=== PATIENT | female | born 1985 | race Hispanic/Latino ===

== ENCOUNTER 2018-09-14 14:52 | Outpatient (CLI) | payer BC ==
--- NOTE | 2018-09-14 16:24 | ULT ---
PELVIC ULTRASOUND: Date: 09/14/18 HISTORY: Cramping and pain between periods. Patient is recently . FINDINGS: Real-time imaging of the pelvis was obtained transabdominally. This shows a normal appearing uterus m easuring 3.5 x 5.0 x 9.0 cm. Endometrium is in the 5-6 mm range. Right and left ovaries are normal in size and appearance. DOPPLER EVALUATION WITH SPECTRAL ANALYSIS: Normal flow is shown to both adnexa. No free fluid. IMPRESSION: Unremarkable pelvic ultrasound. POS: EZEQUIEL
== END 2018-09-14 14:53 | disposition home or self-care (01) ==
LOC: SCSULT 14:52
PROVIDERS: ATTEND Family Medicine
DX: N92.6 Irregular menstruation, unspecified (principal)
CPT/HCPCS: 76856

== ENCOUNTER 2019-05-19 05:04 | Inpatient (IN) | payer BC ==
--- NOTE | 2019-05-18 13:03 | HP ---
HISTORY OF PRESENT ILLNESS: This is a 33-year-old female, with the EDC of 05/24/2019 at 39 weeks who presents for an elective repeat section. The patient has a history of prior section. She had a 7-pound 1-ounce baby girl. She did push for 3 hours unsuccessfully. She also had severe PIH at that time. This course has been relatively uncomplicated. PAST MEDICAL HISTORY: Unremarkable. ALLERGIES: NONE. PAST SURGICAL HISTORY: in December of 2016. FAMILY HISTORY: Positive for diabetes, hypertension, heart disease, and heart failure. SOCIAL HISTORY: She is nonsmoker. socially. REVIEW OF SYSTEMS: As above. PHYSICAL EXAMINATION: VITAL SIGNS: Stable, afebrile. Physical exam per Dr. Maurer. LABORATORY DATA: HIV negative. 1 hour 101. normal. Blood type O-positive, hepatitis B immune, HIV , thyroid normal, RPR negative, HPV rubella immune. ASSESSMENT: 1. Term . 2. Prior section. PLAN: 1. Routine LD orders. 2. Routine Anesthesia orders. 3. Planned repeat low-transverse section. Job ID: [id number]
[2019-05-19 05:49] VITALS: BMI 29.0
[2019-05-19 06:36] LABS: Hemoglobin 11.6 g/dL (12.0-16.0); Mean Corpuscular HGB CONC 33.7 g/dL (32.0-36.0); Mean Corpuscular Hemoglobin 29.9 pg (27.0-31.0); Mean Corpuscular Volume 88.8 fL (78.0-98.0); Mean Platelet Volume 10.8 fL (7.4-10.4); Platelet Count 101 thou/uL (130-400); RBC Distribution Width 11.9 % (11.5-14.5); Red Blood Cell (RBC) Count 3.87 mill/uL (4.20-5.40); White Blood Cell (WBC) Count 7.9 thou/uL (4.8-10.8)
[2019-05-19] MEDS ORDERED: Bicitra 30 ML UDCUP ONE (06:53)
[2019-05-19] MEDS ORDERED: MORPHINE 5 MG/10 ML PF VIAL ONE (06:58)
[2019-05-19] MEDS ORDERED: Fentanyl 100 MCG/2 ML VIAL ONE (06:58)
[2019-05-19] MEDS ORDERED: PHENYLEPHRINE-NS 100 MCG/ML 10 ML SYRINGE ONE (06:59)
[2019-05-19] MEDS ORDERED: Ondansetron PF 4 MG/2 ML Vial ONE (06:59)
[2019-05-19] MEDS ORDERED: Ketorolac Tromethamine 30 MG/ML VIAL ONE (06:59)
[2019-05-19] MEDS ORDERED: Oxytocin 10 UNITS/ML VIAL ONE (06:59)
[2019-05-19] MEDS: Lactated Ringer's 1,000 ML IV SCH ×2 (07:00→12:21)
[2019-05-19 07:11] LABS: HBSAg Index 0.17 S/CO (0-0.99); Hep B Surf Ag Non-Reactive S/CO (NonReactive); Syphilis Antibody Nonreactive (Nonreactive); Syphilis Antibody Index 0.05 S/CO (<1.00 Non-Reactive)
[2019-05-19] MEDS ORDERED: diphenhydrAMINE 50 MG/ML VIAL IVP PRN (07:16)
[2019-05-19] MEDS ORDERED: Ondansetron PF 4 MG/2 ML Vial IVP PRN ×2 (07:16)
[2019-05-19] MEDS ORDERED: Promethazine HCl 25 MG/ML VIAL IM PRN ×2 (07:16)
[2019-05-19] MEDS ORDERED: Naloxone HCl 0.4 mg/ml Vial IV PRN ×2 (07:16→19:10)
[2019-05-19] MEDS ORDERED: Promethazine HCl 25 MG SUPP PR PRN (07:16)
[2019-05-19] MEDS ORDERED: Ondansetron HCl/PF 4 MG/2 ML Vial IVP PRN (07:16)
[2019-05-19] MEDS ORDERED: hydrALAZINE 20 MG/ML VIAL SLOW IVP PRN ×3 (07:16→14:25)
[2019-05-19] MEDS ORDERED: Naloxone HCl 0.4 mg/ml Vial IVP PRN ×2 (07:16)
[2019-05-19] MEDS ORDERED: Acetaminophen 1,000 MG in Premix Bag 1 BAG IVPB PRN (07:17)
[2019-05-19] MEDS ORDERED: Adacel (T-DAP) 0.5 ML SYRINGE IM ONE (07:20)
[2019-05-19] MEDS ORDERED: Bicitra 30 ML UDCUP PO SCH (07:30)
[2019-05-19] MEDS ORDERED: CEFAZOLIN 2 GM in Premix Bag 1 BAG IVPB SCH (07:30)
[2019-05-19] MEDS ORDERED: NS / Oxytocin 40 units/1000ml 1,000 ML IV SCH (07:30)
[2019-05-19] MEDS ORDERED: Communication Order-Pharmacy FS SCH (07:30)
[2019-05-19] MEDS ORDERED: Ketorolac Tromethamine 30 MG/ML VIAL IVP SCH (12:00)
[2019-05-19] MEDS ORDERED: Bisacodyl 10 MG SUPP PR PRN (14:25)
[2019-05-19] MEDS ORDERED: Lanolin Ointment 7 GM TUBE TOP PRN (14:25)
[2019-05-19] MEDS ORDERED: HYDROcodone/Acetaminophen 5/325 mg Tablet PO PRN (14:25)
[2019-05-19] MEDS ORDERED: Ibuprofen 800 MG TAB PO SCH (14:25)
[2019-05-19] MEDS ORDERED: Simethicone Chewable 80 MG TAB PO PRN (14:25)
[2019-05-19] MEDS ORDERED: diphenhydrAMINE 25 MG CAP PO PRN (14:25)
[2019-05-19] MEDS: Docusate Calcium (SURFAK) 240 MG CAP PO SCH ×2 (15:48→20:51)
[2019-05-19] MEDS: Ketorolac Tromethamine 30 MG/ML VIAL IVP SCH ×2 (16:09→21:49)
--- NOTE | 2019-05-19 20:55 | OP ---
DATE OF PROCEDURE: 05/19/2019 RESIDENT: Ophelia Wolfe DO ATTENDING SURGEONS: 1. Fab Guerrero MD. 2. Courtney Maurer MD. PROCEDURE PERFORMED: Repeat low-transverse section. PREOPERATIVE DIAGNOSES: 1. Term intrauterine . 2. Previous section for arrest of descent. 3. Previous history of gestational hypertension with severe range of pressures. POSTOPERATIVE DIAGNOSES: 1. Term intrauterine , delivered. 2. Previous section for arrest of descent. 3. Previous history of gestational hypertension with severe range pressures. ANESTHESIA: Spinal. INDICATIONS FOR PROCEDURE: This is a 33-year-old G2, P1-0-0-1 with EDC of 05/24/2019 at 39 weeks who presents for elective repeat section. PROCEDURE IN DETAIL: After risks, benefits, and alternatives were explained to the patient, she gave informed consent. Preoperative antibiotics included cefazolin 2 g IV. The patient was taken to the operating room and spinal anesthesia was initiated. She was placed in the supine position with a left tilt and prepped and draped in the usual sterile fashion. A Pfannenstiel incision was made with a scalpel and carried down to the level of the fascia, which was sharply nicked. The fascial cut was extended bilaterally with Snow scissors. The inferior and superior edges of the cut fascial edges were elevated with Nirali clamps and the underlying rectus muscles were sharply and bluntly dissected free. There were not noted to be extensive adhesions at this point in time. The recti were divided digitally and retracted manually. Snow scissors were used to divide the rectus muscles at the midline. The peritoneum was entered bluntly and retracted manually. Bladder blade was placed. There were several adhesions on the uterus, only some of which were removed via cauterization prior to uterine incision. A low transverse score was made with a scalpel. The uterus was entered in the midline with the scalpel. Clear fluid was seen. Hysterotomy was extended manually. The infant was noted to be vertex and was delivered by fundal pressure and the use of a vacuum with one application and no pop offs. Mouth and nares were bulb suctioned. Cord was clamped and cut and grossly normal female was handed to the awaiting nurse. Cord blood was obtained. Placenta was manually extracted, found to be intact with 3-vessel cord and discarded. The uterus was externalized and the endometrium was curetted with a dry lap. The bladder blade was replaced and the uterus was closed with a running locking #1 Monocryl suture followed by 2 [id number] stitches for hemostasis. The abdomen was irrigated with saline and suctioned free of clots. Uterus was internalized. The hysterotomy was again noted to be hemostatic. The peritoneum was closed with 3-0 chromic. The fascia was then closed with a running nonlocking 0 Vicryl suture. The subcutaneous tissue was irrigated and bleeders were cauterized. The subcutaneous tissue was brought together using 3-0 chromic. The skin was approximated with ana and a pressure dressing was placed. All counts were correct. The patient tolerated the procedure well and was taken to the recovery room in stable condition. ESTIMATED BLOOD LOSS: 682 mL. COMPLICATIONS: None. SPECIMENS: Cord blood sent to the lab for blood type. FINDINGS: Grossly normal female infant with Apgars pending at the time of dictation. Grossly normal placenta with 3-vessel cord was discarded. DRAIN: Carlson to gravity, draining clear urine. Job ID: [id number] MTDD
[2019-05-20] MEDS: Ketorolac Tromethamine 30 MG/ML VIAL IVP SCH (04:06)
[2019-05-20 05:40] LABS: Hemoglobin 10.3 g/dL (12.0-16.0); Mean Corpuscular HGB CONC 34.1 g/dL (32.0-36.0); Mean Corpuscular Hemoglobin 30.2 pg (27.0-31.0); Mean Corpuscular Volume 88.5 fL (78.0-98.0); Mean Platelet Volume 9.7 fL (7.4-10.4); Platelet Count 139 thou/uL (130-400); RBC Distribution Width 11.9 % (11.5-14.5); Red Blood Cell (RBC) Count 3.41 mill/uL (4.20-5.40); White Blood Cell (WBC) Count 8.3 thou/uL (4.8-10.8)
[2019-05-20] MEDS: Docusate Calcium (SURFAK) 240 MG CAP PO SCH ×2 (08:13→20:57)
[2019-05-20] MEDS: HYDROcodone/Acetaminophen 5/325 mg Tablet PO PRN ×2 (13:24→20:57)
[2019-05-20] MEDS ORDERED: Ibuprofen 800 MG TAB PO SCH (22:45)
[2019-05-21] MEDS ORDERED: Ibuprofen 800 MG TAB PO SCH ×2 (06:00→10:00)
[2019-05-21 08:11] VITALS: BP 134/79; TEMP 97.8
[2019-05-21] MEDS: Docusate Calcium (SURFAK) 240 MG CAP PO SCH (09:05)
--- NOTE | 2019-05-22 11:22 | DIS ---
DATE OF ADMISSION: 05/19/2019 DATE OF DISCHARGE: 05/21/2019 DISCHARGE DIAGNOSES: 1. Term . 2. Prior section. PROCEDURE PERFORMED: Repeat low transverse section. BRIEF HISTORY: This is a 33-year-old female, G2, P1, at 39 weeks' gestation, was admitted for an elective repeat section. Patient had a prior with requiring 3 hours of pushing without success. Patient requested a repeat . She was not interested in a . HOSPITAL COURSE: The patient underwent a repeat low transverse section without difficulty. she did well. No complaints. Minimal bleeding. She is . She will follow up in the office in the a.m. to remove the ana. Discharge H and H of 10 and 30. Job ID: [id number]
== END 2019-05-21 12:50 | disposition home or self-care (01) | DRG 788 ==
LOC: L&D 05:04 → 3SE 14:06
PROVIDERS: ADMIT Family Medicine; ATTEND Family Medicine
PROC: 10D00Z1 Extraction of Products of Conception, Low, Open Approach (ICD-10-PCS; principal; 2019-05-19)
DX: O34.211 Maternal care for low transverse scar from previous cesarean delivery (principal); O89.4 Spinal and epidural anesthesia-induced headache during the puerperium; Z3A.39 39 weeks gestation of pregnancy; Z37.0 Single live birth
CPT/HCPCS: 36415; 51702; 85027; 86780; 86850; 86900; 86901; 87340; J0131; J0690; J1885; J2274; J2310; J2405; J2590; J3010; Q0163

== ENCOUNTER 2020-08-26 15:01 | Outpatient (CLI) | payer BC ==
[~2020-08-26 15:01] MED LIST: Iopamidol 370 76% 100 ML VIAL ONE
--- NOTE | 2020-08-26 16:26 | CT ---
CT ABDOMEN AND PELVIS WITH IV CONTRAST: Oral contrast was given. Indications: Left lower quadrant pain. Comparison: 01-04-17 FINDINGS: Lung bases clear. There is a tiny low density focus in the mid right lobe of the liver, subcentimeter, probably represe nting tiny chest. Otherwise, the liver, spleen, pancreas, stomach, duodenum unremarkable. Adrenal glands and kidneys unremarkable. Small bowel loops appear normal. Appendix appears normal. Colon unremarkable. Aorta normal caliber. N o adenopathy or free fluid. Images through the pelvis unremarkable. Urinary bladder is distended and unremarkable. Osseous struct ures unremarkable. IMPRESSION: No acute findings. POS: AGW
== END 2020-08-26 15:02 | disposition home or self-care (01) ==
LOC: BICCT 15:01
PROVIDERS: ATTEND Internal Medicine Gastroenterology
DX: R10.32 Left lower quadrant pain (principal); Z73.3 Stress, not elsewhere classified
CPT/HCPCS: 74177; Q9967